=== PATIENT | female | born 1965 ===

== ENCOUNTER 2016-06-09 15:33 | Emergency (ER) | payer MEDICAID ==
[2016-06-09 15:34] VITALS: BMI 27.9
[2016-06-09 16:44] VITALS: RESP 18; TEMP 98.2
[2016-06-09 17:08] VITALS: PULSE 62
[2016-06-09] MEDS ORDERED: Oxycodone/Acetaminophen 5/325 mg Tab PO STA (17:14)
--- NOTE | 2016-06-09 17:17 | ED PDOC ---
Arrival/HPI - General Chief Complaint: Back Pain Time Seen by Provider: 06/09/16 16:12 Historian: Patient - History of Present Illness Narrative History of Present Illness (Text): 06/09/16 17:14 Patient with h/o chronic intermittent low back pain, reports 7 day h/o pain in the R lower back worse with movement and palpation, beginning after she slipped and fell onto her knees 7 days ago, while walking in the rain, states that she does follow up with pain management, was on hydrocodone 10 mg, however ran out 1 week ago and unable to follow up with her pain management doctor, due to lack of available appointment. Otherwise: (-) paresthesias, (-) weakness, (-) acute bowel or bladder dysfunction, (-) urinary symptoms, (-) fever. Has history of prior back problem. Past Medical History - Provider Review Nursing Documentation Reviewed: Yes - Infectious Disease Hx of Infectious Diseases: None - Tetanus Immunization Tetanus Immunization: Unknown - Past Medical History Past Medical History: Non-Contributing - Cardiac Hx Cardiac Disorders: No - Pulmonary Hx Respiratory Disorders: Yes Hx Asthma: Yes Hx Bronchitis: Yes - Neurological Hx Neurological Disorder: No - HEENT Hx HEENT Disorder: No - Renal Hx Renal Disorder: No - Endocrine/Metabolic Hx Endocrine Disorders: No Hx Diabetes Mellitus Type 2: Yes - Hematological/Oncological Hx Blood Disorders: Yes Hx Anemia: Yes - Integumentary Hx Dermatological Disorder: No - Musculoskeletal/Rheumatological Hx Musculoskeletal Disorders: Yes Hx Back Pain: Yes (chronic) Hx Osteoarthritis: Yes - Gastrointestinal Hx Gastrointestinal Disorders: Yes Hx Gastroesophageal Reflux: Yes - Genitourinary/Gynecological Hx Genitourinary Disorders: Yes Other/Comment: kidney stones - Psychiatric Hx Psychophysiologic Disorder: No Hx Substance Use: No - Surgical History Hx Hysterectomy: Yes (2011) Hx Orthopedic Surgery: Yes (foot left) Other/Comment: kidney stones removed, cyst removal - Anesthesia Hx Anesthesia: No Hx Anesthesia Reactions: No Hx Malignant Hyperthermia: No - Suicidal Assessment Feels Threatened In Home Enviroment: No Family/Social History - Physician Review Nursing Documentation Reviewed: Yes Family/Social History: No Known Family HX Smoking Status: Heavy Smoker > 10 Cigarettes Daily Hx Alcohol Use: No Hx Substance Use: No Hx Substance Use Treatment: No Allergies/Home Meds Allergies/Adverse Reactions: Allergies No Known Allergies Allergy (Verified 06/09/16 16:38) Home Medications: Home Meds Medication Instructions Recorded Confirmed Albuterol HFA [Ventolin HFA 90 2 puff IH QID 06/03/13 06/06/15 mcg/actuation (8 g)] Hydroxyzine Pamoate 50 mg PO BID 06/03/13 06/06/15 Montelukast [Singulair] 10 mg PO DAILY 06/03/13 06/06/15 Omeprazole 20 mg PO DAILY 06/03/13 06/06/15 Neomycin/Polymyxin/Hydrocort 2 drop .ROUTE TID 02/14/15 06/06/15 [Cortisporin Otic Soln] Zolpidem Tartrate [Ambien] 10 mg PO HS PRN 02/14/15 06/06/15 oxyCODONE/Acetaminophen [Percocet 1 tab PO HS PRN 02/14/15 06/06/15 5/325 mg Tab] Review of Systems - Review of Systems Constitutional: Normal. absent: Fatigue, Weight Change, Fevers Respiratory: Normal. absent: SOB, Cough Cardiovascular: Normal. absent: Chest Pain, Palpitations Gastrointestinal: Normal. absent: Abdominal Pain, Stool Changes Genitourinary Female: Normal. absent: Dysuria, Frequency Musculoskeletal: Normal, Back Pain (chronic low back pain). absent: Arthralgias Skin: Normal. absent: Rash, Pruritis Physical Exam - Physical Exam Narrative Physical Exam (Text): 06/09/16 17:17 GENERAL APPEARANCE: Patient is awake, alert, oriented x 3, in mild painful distress. SKIN: Warm, dry; (-) cyanosis. EYES: (-) conjunctival pallor. ENMT: Mucous membranes moist. NECK: (-) tenderness, (-) stiffness, (-) lymphadenopathy. CHEST AND RESPIRATORY: (-) rales, (-) rhonchi, (-) wheezes; breath sounds equal bilaterally. HEART AND CARDIOVASCULAR: (-) irregularity; (-) murmur, (-) gallop. ABDOMEN AND GI: Soft; (-) tenderness; (-) palpable mass. BACK: (+) mild tenderness to the R paralumbar area, (+) mild spasm, (-) direct bony tenderness, (-) deformity. Straight leg raising (-) bilaterally. EXTREMITIES: (-) deformity. Distal pulses good bilaterally. NEURO AND PSYCH: Mental status as above. Intact sensation bilaterally; normal strength in extension of the knees, plantar and dorsiflexion of the toes. DTRs symmetric. Vital Signs Temp Pulse Resp BP Pulse Ox 06/09/16 17:06 98.2 F 62 18 147/74 100 06/09/16 16:44 98.2 F 86 18 126/73 100 Medical Decision Making ED Course and Treatment: 06/09/16 17:18 50 yo MF presents with 1 week h/o R low back pain, likely lumbar strain from slip and fall. Patient medicated with toradol IM, flexeril PO and percocet PO. Given a refill of her hydrocodone-acetaminophen 7.5-325 mg PO. Based on history and exam, plan will be for outpatient follow-up with pain management doctor. Prescription provided. Patient states she fully agrees with and understands discharge instructions. States that she agrees with the plan and disposition. Verbalized and repeated discharge instructions and plan. I have given the patient opportunity to ask any additional questions. Follow up with pain management in 1-2 days without fail. Advised to take medication as prescribed. Return to the emergency room at any time for any new or worsening symptoms. - PA / DENIAL RESOLUTION SPECIALIST / Resident Statement MD/DO has reviewed & agrees with the documentation as recorded. Disposition/Present on Arrival - Present on Arrival Any Indicators Present on Arrival: No History of DVT/PE: No History of Uncontrolled Diabetes: No Urinary Catheter: No History of Decub. Ulcer: No History Surgical Site Infection Following: None - Disposition Have Diagnosis and Disposition been Completed?: Yes Diagnosis: Back pain Disposition: HOME/ ROUTINE Disposition Time: 17:20 Patient Plan: Discharge Condition: GOOD Discharge Instructions (ExitCare): Acute Low Back Pain (ED) Print Language: AMHARIC Additional Instructions: Thank you for letting us take care of you today. You were treated for low back pain. The emergency medical care you received today was directed at your acute symptoms. If you were prescribed any medication, please fill it and take as directed. It may take several days for your symptoms to resolve. Return to the Emergency Department if your symptoms worsen, do not improve, or if you have any other problems. Please contact your pain management doctor in 2 days for re-evaluation and follow up. Bring any paperwork you were given at discharge with you along with any medications you are taking to your follow up visit. Our treatment cannot replace ongoing medical care by a primary care provider (PCP) outside of the emergency department. Thank you for allowing the [facility] team to be part of your care today. Prescriptions: Cyclobenzaprine [Cyclobenzaprine HCl] 10 mg PO TID #15 tab Naproxen 500 mg PO BID #30 tab Hydrocodone/Acetaminophen [Vicodin Es 7.5-300 mg Tablet] 1 each PO TID #16 tablet Forms: WORK NOTE
[2016-06-09 18:01] VITALS: BP 139/87; O2SAT 95
== END 2016-06-09 17:59 | disposition home or self-care (01) ==
LOC: ED 15:33
DX: M54.9 Dorsalgia, unspecified (principal); E11.9 Type 2 diabetes mellitus without complications
CPT/HCPCS: 96372; 99283; J1885

== ENCOUNTER 2016-06-24 19:16 | Emergency (ER) | payer MEDICAID ==
[2016-06-24 19:19] VITALS: BMI 28.3
[2016-06-24] MEDS ORDERED: Promethazine 6.25 MG/5 ML CUP PO STA (19:33)
[2016-06-24] MEDS ORDERED: Albuterol-Ipratrop 3 mg / 0.5 (3 ml) UD IH STA (19:33)
[2016-06-24] MEDS ORDERED: Oxycodone/Acetaminophen 5/325 mg Tab PO STA (19:33)
[2016-06-24 19:39] VITALS: RESP 16; TEMP 97.7; O2SAT 97
--- NOTE | 2016-06-24 19:39 | ED PDOC ---
Arrival/HPI - General Time Seen by Provider: 06/24/16 19:17 - History of Present Illness Narrative History of Present Illness (Text): 50F c/o cough and sob for the last 4 days. she feels chest congestion but cough is not productive. no fever. also c/o flare up of her chronic back pain from coughing. she saw her doctor a couple days ago and was rx zpack, prednisone and tessalon but feels she has not improved. Past Medical History - Infectious Disease Hx of Infectious Diseases: None - Tetanus Immunization Tetanus Immunization: Unknown - Past Medical History Past Medical History: Non-Contributing - Cardiac Hx Cardiac Disorders: No - Pulmonary Hx Respiratory Disorders: Yes Hx Asthma: Yes Hx Bronchitis: Yes - Neurological Hx Neurological Disorder: No - HEENT Hx HEENT Disorder: No - Renal Hx Renal Disorder: No - Endocrine/Metabolic Hx Endocrine Disorders: No Hx Diabetes Mellitus Type 2: Yes - Hematological/Oncological Hx Blood Disorders: Yes Hx Anemia: Yes - Integumentary Hx Dermatological Disorder: No - Musculoskeletal/Rheumatological Hx Musculoskeletal Disorders: Yes Hx Back Pain: Yes (chronic) Hx Osteoarthritis: Yes - Gastrointestinal Hx Gastrointestinal Disorders: Yes Hx Gastroesophageal Reflux: Yes - Genitourinary/Gynecological Hx Genitourinary Disorders: Yes Other/Comment: kidney stones - Psychiatric Hx Psychophysiologic Disorder: No Hx Substance Use: No - Surgical History Hx Hysterectomy: Yes (2011) Hx Orthopedic Surgery: Yes (foot left) Other/Comment: kidney stones removed, cyst removal - Anesthesia Hx Anesthesia: No Hx Anesthesia Reactions: No Hx Malignant Hyperthermia: No - Suicidal Assessment Feels Threatened In Home Enviroment: No Family/Social History Family/Social History: Other (nc) Smoking Status: Heavy Smoker > 10 Cigarettes Daily Hx Alcohol Use: No Hx Substance Use: No Hx Substance Use Treatment: No Allergies/Home Meds Allergies/Adverse Reactions: Allergies naproxen Allergy (Verified 06/24/16 19:30) RASH Home Medications: Home Meds Medication Instructions Recorded Confirmed Albuterol HFA [Ventolin HFA 90 2 puff IH QID 06/03/13 06/24/16 mcg/actuation (8 g)] Hydroxyzine Pamoate 50 mg PO BID 06/03/13 06/24/16 Montelukast [Singulair] 10 mg PO DAILY 06/03/13 06/24/16 Omeprazole 20 mg PO DAILY 06/03/13 06/24/16 Zolpidem Tartrate [Ambien] 10 mg PO HS PRN 02/14/15 06/24/16 Albuterol HFA [Ventolin HFA 90 1 puff INH PRN PRN 06/24/16 06/24/16 mcg/actuation (8 g)] Atorvastatin [Lipitor] 10 mg PO DAILY 06/24/16 06/24/16 Azithromycin [Zithromax] 250 mg PO DAILY 06/24/16 06/24/16 Prednisone [Deltasone] 20 mg PO DAILY 06/24/16 06/24/16 oxyCODONE [oxyCONTIN Extended 10 mg PO Q4H PRN 06/24/16 06/24/16 Release Tab] oxyCODONE/Acetaminophen [Percocet 1 tab PO Q6 PRN 06/24/16 06/24/16 5/325 mg Tab] Review of Systems - Review of Systems Constitutional: absent: Fevers, Night Sweats Eyes: absent: Vision Changes Respiratory: SOB, Cough. absent: Sputum, Wheezing Cardiovascular: absent: Chest Pain Gastrointestinal: absent: Abdominal Pain, Vomiting Genitourinary Female: absent: Dysuria Musculoskeletal: Back Pain Physical Exam Vital Signs Temp Pulse Resp BP Pulse Ox 06/24/16 20:42 99 H 16 138/89 97 06/24/16 19:20 97.7 F 83 16 141/92 H 97 Appearance: Positive for: Well-Appearing, Non-Toxic, Comfortable Pain Distress: None Mental Status: Positive for: Alert and Oriented X 3 - Systems Exam Head: Present: Atraumatic Mouth: Present: Moist Mucous Membranes Neck: Present: Normal Range of Motion Respiratory/Chest: Present: Clear to Auscultation, Good Air Exchange. No: Respiratory Distress, Accessory Muscle Use, Wheezes Cardiovascular: Present: Regular Rate and Rhythm Abdomen: No: Tenderness, Distention Neurological: Present: GCS=15, Motor Func Grossly Intact, Normal Sensory Function Skin: Present: Warm, Dry Psychiatric: Present: Alert, Oriented x 3 Medical Decision Making ED Course and Treatment: ecg- nsr 80, nl axis, nl int, no acute ischemia 06/24/16 20:04 cxr- several subcentimenter round densities in the right lung, otherwise nad I disc cxr w pt and importance of close f/u w pcp for an outpt chest CT to rule out malignancy - RAD Interpretation Radiology Orders: 06/24/16 19:33 CHEST TWO VIEWS (PA/LAT) [RAD] Stat - Medication Orders Current Medication Orders: Discontinued Medications Albuterol/Ipratropium (Duoneb 3 Mg/0.5 Mg (3 Ml) Ud) 3 ml IH ONCE STA Stop: 06/24/16 19:34 Last Admin: 06/24/16 19:50 Dose: 3 ML Oxycodone/Acetaminophen (Percocet 5/325 Mg Tab) 1 tab PO STAT STA Stop: 06/24/16 19:34 Last Admin: 06/24/16 19:50 Dose: 1 TAB Promethazine HCl (Phenergan Syrup) 6.25 mg PO STAT STA Stop: 06/24/16 19:34 Last Admin: 06/24/16 19:50 Dose: 6.25 MG Disposition/Present on Arrival - Present on Arrival Any Indicators Present on Arrival: No History of DVT/PE: No History of Uncontrolled Diabetes: No Urinary Catheter: No History Surgical Site Infection Following: None - Disposition Have Diagnosis and Disposition been Completed?: Yes Diagnosis: Bronchitis Disposition: HOME/ ROUTINE Disposition Time: 20:03 Condition: STABLE Discharge Instructions (ExitCare): Acute Bronchitis (ED) Additional Instructions: Please follow up with your doctor. Return to the ER for any worsening symptoms or for any other concerns. Prescriptions: Promethazine [Promethazine HCl] 6.25 mg PO Q6H PRN #12 dose PRN Reason: Cough Acetaminophen with Codeine [Tylenol with Codeine #3 Tablet] 1 each PO Q4H PRN # 6 tablet PRN Reason: Pain, Moderate (4-7) Referrals: Tamia Tan MD [Primary Care Provider] - Follow up with primary
[2016-06-24 20:42] VITALS: BP 138/89; PULSE 99
--- NOTE | 2016-06-25 07:30 | RAD ---
HISTORY: cough COMPARISON: 02/20/2016. TECHNIQUE: Chest PA and lateral FINDINGS: LUNGS: No active pulmonary disease. PLEURA: No significant pleural effusion identified. No pneumothorax apparent. CARDIOVASCULAR: Normal. OSSEOUS STRUCTURES: No significant abnormalities. VISUALIZED UPPER ABDOMEN: Metallic clips right upper quadrant of the abdomen consistent with prior cholecystectomy. OTHER FINDINGS: None. IMPRESSION: No active disease.
--- NOTE | 2016-06-25 10:15 | CARD ---
APPROVED REPORT EKG Measurement Heart [id number] <Conclusion> Normal sinus rhythm Possible Left atrial enlargement Borderline ECG
== END 2016-06-24 20:43 | disposition home or self-care (01) ==
LOC: ED 19:16
DX: J40 Bronchitis, not specified as acute or chronic (principal)

== ENCOUNTER 2016-08-05 13:25 | Emergency (ER) | payer MEDICAID ==
[2016-08-05 13:25] VITALS: BMI 28.3
[2016-08-05 13:31] VITALS: PULSE 85; TEMP 98
[2016-08-05] MEDS ORDERED: Oxycodone/Acetaminophen 5/325 mg Tab PO STA (13:36)
--- NOTE | 2016-08-05 13:40 | ED PDOC ---
Arrival/HPI - General Chief Complaint: Back Pain Time Seen by Provider: 08/05/16 13:36 - History of Present Illness Narrative History of Present Illness (Text): 08/05/16 13:36 Patient presents complaining of back pain. States the location is in the lower region, across her back, feels like muscle spasms. Worst with movement and palpation. Pt states this feels identical to previous back pain quality that have happened in the past. States that she helped push someone in a wheelchair yesterday which made her pain worse. States that she not feel or hear a pop. Denies fevers/chills, denies IVDA, denies any lower extremity weakness/numbness/ paresthesias. Pt denies saddle anesthesia. Denies any urinary freq or retention. Denies bowel dysfunction/irregularity/incontinence/constipation. Past Medical History - Provider Review Nursing Documentation Reviewed: Yes - Infectious Disease Hx of Infectious Diseases: None - Tetanus Immunization Tetanus Immunization: Unknown - Past Medical History Past Medical History: Non-Contributing - Cardiac Hx Cardiac Disorders: No - Pulmonary Hx Respiratory Disorders: Yes Hx Asthma: Yes Hx Bronchitis: Yes - Neurological Hx Neurological Disorder: No - HEENT Hx HEENT Disorder: No - Renal Hx Renal Disorder: No - Endocrine/Metabolic Hx Endocrine Disorders: No Hx Diabetes Mellitus Type 2: Yes - Hematological/Oncological Hx Blood Disorders: Yes Hx Anemia: Yes - Integumentary Hx Dermatological Disorder: No - Musculoskeletal/Rheumatological Hx Musculoskeletal Disorders: Yes Hx Back Pain: Yes (chronic) Hx Osteoarthritis: Yes - Gastrointestinal Hx Gastrointestinal Disorders: Yes Hx Gastroesophageal Reflux: Yes - Genitourinary/Gynecological Hx Genitourinary Disorders: Yes Other/Comment: kidney stones - Psychiatric Hx Psychophysiologic Disorder: No Hx Substance Use: No - Surgical History Hx Hysterectomy: Yes (2011) Hx Orthopedic Surgery: Yes (foot left) Other/Comment: kidney stones removed, cyst removal - Anesthesia Hx Anesthesia: Yes Hx Anesthesia Reactions: No Hx Malignant Hyperthermia: No - Suicidal Assessment Feels Threatened In Home Enviroment: No Family/Social History Family/Social History: Unknown Family HX Smoking Status: Heavy Smoker > 10 Cigarettes Daily Hx Alcohol Use: No Hx Substance Use: No Hx Substance Use Treatment: No Allergies/Home Meds Allergies/Adverse Reactions: Allergies naproxen Allergy (Verified 08/05/16 13:31) RASH Home Medications: Home Meds Medication Instructions Recorded Confirmed Albuterol HFA [Ventolin HFA 90 2 puff IH QID 06/03/13 08/05/16 mcg/actuation (8 g)] Hydroxyzine Pamoate 50 mg PO BID 06/03/13 08/05/16 Montelukast [Singulair] 10 mg PO DAILY 06/03/13 08/05/16 Omeprazole 20 mg PO DAILY 06/03/13 08/05/16 Zolpidem Tartrate [Ambien] 10 mg PO HS PRN 02/14/15 08/05/16 Albuterol HFA [Ventolin HFA 90 1 puff INH PRN PRN 06/24/16 08/05/16 mcg/actuation (8 g)] Atorvastatin [Lipitor] 10 mg PO DAILY 06/24/16 08/05/16 oxyCODONE [oxyCONTIN Extended 10 mg PO Q4H PRN 06/24/16 08/05/16 Release Tab] Physical Exam - Physical Exam Narrative Physical Exam (Text): 08/05/16 13:37 - Review of Systems Constitutional: Normal. absent: Fatigue, Weight Change, Fevers Eyes: Normal ENT: denies sore throat, denies tristhmus Respiratory: Normal. absent: SOB, Cough, Sputum Cardiovascular: absent: Chest Pain, Palpitations, Syncope Gastrointestinal: Normal. absent: Abdominal Pain, Diarrhea, Nausea, Vomiting Genitourinary: Normal. absent: Dysuria, Frequency, Hematuria, vaginal bleeding Musculoskeletal: Back Pain. absent: Arthralgias, Neck Pain Skin: no rashes, no erythema Neurological: absent: Focal Weakness Endocrine: Normal Hemo/Lymphatic: Normal Psychiatric: No suicidal or homicidal ideations Physical exam Patient appears age appropriate in no distress, speaking full sentences without difficulty Increased hypertonicity appreciated in the lower lumbar region, pain quality reproduced with palpation. No midline tenderness. FROM of pt's cervical, thoracic, lumbar, and sacral regions appreciated, active/passive without any difficulty. Lower extremities with full neurological and vascular intact. Steady gait. - Systems Exam Head: Present: Atraumatic, Normocephalic Pupils: Present: PERRL Extroacular Muscles: Present: EOMI Conjunctiva: Present: Normal Mouth: Present: Moist Mucous Membranes Neck: Present: Normal Range of Motion. No: MIDLINE TENDERNESS, Paraspinal Tenderness Respiratory/Chest: Present: Clear to Auscultation, Good Air Exchange. No: Respiratory Distress, Accessory Muscle Use, Tachypneic Cardiovascular: Present: Regular Rate and Rhythm, Normal S1, S2, Peripheal Pulses Present. No: Murmurs Abdomen: Present: Normal Bowel Sounds. No: Tenderness, Distention, Peritoneal Signs, Rebound, Guarding Back: Present: No: Midline Tenderness Upper Extremity: Present: Normal Inspection. No: Cyanosis, Edema Lower Extremity: Present: Normal Inspection. No: Edema Neurological: Present: GCS=15, Speech Normal, cranial nerves II through XII fully intact with no cerebellar abnormality, neurosensory fully intact. No focal neurological deficits. Skin: Present: Warm, Dry, Normal Color. No: Rashes Lymphatic: Present: OX3, NI, NC Psychiatric: Present: Alert, Oriented x 3, Normal Insight, Normal Concentration Vital Signs Reviewed: Yes Vital Signs Temp Pulse Resp BP Pulse Ox 08/05/16 13:26 98 F 85 20 116/84 99 Temperature: Afebrile Blood Pressure: Normal Pulse: Regular Respiratory Rate: Normal Appearance: Positive for: Well-Appearing Pain Distress: Mild Mental Status: Positive for: Alert and Oriented X 3 Medical Decision Making ED Course and Treatment: 08/05/16 13:39 pt received Percocet for her request. Pt states is not driving home. Based on hx and physical, no suspicion for renal involvement, cord impingement or epidural/spinal abscess stable for dc home. instructed not to drive/operate machinery/drink/do drugs with medication pt states she has f/u with PMD this upcoming week Pt verbalized understands to return to the ER right away for new or worsening symptoms or for inability to f/u with PMD or specialist as instructed. Patient verbalized full agreement with and understanding of discharge instructions. States that she agrees with the plan and disposition. Verbalized and repeated discharge instructions and plan. I have given the patient opportunity to ask any additional questions. Disposition/Present on Arrival - Present on Arrival Any Indicators Present on Arrival: No History of DVT/PE: No History of Uncontrolled Diabetes: No Urinary Catheter: No History of Decub. Ulcer: No History Surgical Site Infection Following: None - Disposition Have Diagnosis and Disposition been Completed?: Yes Diagnosis: Back pain Disposition: HOME/ ROUTINE Disposition Time: 13:40 Patient Plan: Discharge Condition: GOOD Discharge Instructions (ExitCare): Back Pain (ED), Chronic Back Pain (ED), Acute Low Back Pain (ED) Additional Instructions: PLEASE RETURN TO THE EMERGENCY DEPARTMENT FOR NEW OR WORSENING SYMPTOMS. RETURN RIGHT AWAY IF YOU CANNOT FOLLOW UP WITH YOUR PRIMARY CARE DOCTOR, CLINIC, OR SPECIALIST IN 1-2 DAYS. Prescriptions: Cyclobenzaprine [Flexeril] 5 mg PO BID #10 tab Referrals: Carina Amaya MD [Staff Provider] - Follow up with primary
[2016-08-05 14:00] VITALS: BP 114/76; RESP 19; O2SAT 100
== END 2016-08-05 14:01 | disposition home or self-care (01) ==
LOC: ED 13:25
DX: M54.9 Dorsalgia, unspecified (principal)

== ENCOUNTER 2016-08-06 17:40 | Emergency (ER) | payer MEDICAID ==
[2016-08-06 17:40] VITALS: BMI 28.3
[2016-08-06 18:29] VITALS: BP 120/84; PULSE 90; RESP 16; TEMP 98.4; O2SAT 97
[2016-08-06] MEDS ORDERED: Oxycodone/Acetaminophen 5/325 mg Tab PO STA (19:01)
--- NOTE | 2016-08-06 19:04 | ED PDOC ---
Arrival/HPI - General Chief Complaint: Back Pain Time Seen by Provider: 08/06/16 19:01 Historian: Patient - History of Present Illness Narrative History of Present Illness (Text): 08/06/16 19:05 50 year old female presents to the emergency department complaining of lower back pain. She states the pain is in the lower region, across her back, and feels like muscle spasms. Pain is worse with movement and palpation. Patient states this feels identical to previous back pain quality that has happened in the past. She states that she helped push someone in a wheelchair two days ago which made her pain worse. She states she did not feel or hear a pop. Denies fevers/chills, denies IVDA, denies any lower extremity weakness/numbness/ paresthesias. Patient denies saddle anesthesia. Denies any urinary frequency or retention. Denies bowel dysfunction/irregularity/incontinence/constipation. Time/Duration: < week Symptom Onset: Gradual Symptom Course: Unchanged Associated Symptoms (Text): None Past Medical History - Provider Review Nursing Documentation Reviewed: Yes - Infectious Disease Hx of Infectious Diseases: None - Tetanus Immunization Tetanus Immunization: Unknown - Past Medical History Past Medical History: Non-Contributing - Cardiac Hx Cardiac Disorders: No - Pulmonary Hx Respiratory Disorders: Yes Hx Asthma: Yes Hx Bronchitis: Yes - Neurological Hx Neurological Disorder: No - HEENT Hx HEENT Disorder: No - Renal Hx Renal Disorder: No - Endocrine/Metabolic Hx Endocrine Disorders: No Hx Diabetes Mellitus Type 2: Yes - Hematological/Oncological Hx Blood Disorders: Yes Hx Anemia: Yes - Integumentary Hx Dermatological Disorder: No - Musculoskeletal/Rheumatological Hx Musculoskeletal Disorders: Yes Hx Back Pain: Yes (chronic) Hx Osteoarthritis: Yes - Gastrointestinal Hx Gastrointestinal Disorders: Yes Hx Gastroesophageal Reflux: Yes - Genitourinary/Gynecological Hx Genitourinary Disorders: Yes Other/Comment: kidney stones - Psychiatric Hx Psychophysiologic Disorder: No Hx Substance Use: No - Surgical History Hx Hysterectomy: Yes (2011) Hx Orthopedic Surgery: Yes (foot left) Other/Comment: kidney stones removed, cyst removal - Anesthesia Hx Anesthesia: No - Suicidal Assessment Feels Threatened In Home Enviroment: No Family/Social History - Physician Review Nursing Documentation Reviewed: Yes Family/Social History: Unknown Family HX Smoking Status: Heavy Smoker > 10 Cigarettes Daily Hx Alcohol Use: No Hx Substance Use: No Hx Substance Use Treatment: No Allergies/Home Meds Allergies/Adverse Reactions: Allergies naproxen Allergy (Verified 08/06/16 18:24) RASH Review of Systems - Physician Review All systems were reviewed & negative as marked: Yes Physical Exam - Physical Exam Narrative Physical Exam (Text): - Review of Systems Constitutional: Normal. absent: Fatigue, Weight Change, Fevers Eyes: Normal ENT: denies sore throat, denies tristhmus Respiratory: Normal. absent: SOB, Cough, Sputum Cardiovascular: absent: Chest Pain, Palpitations, Syncope Gastrointestinal: Normal. absent: Abdominal Pain, Diarrhea, Nausea, Vomiting Genitourinary: Normal. absent: Dysuria, Frequency, Hematuria, vaginal bleeding Musculoskeletal: Back Pain. absent: Arthralgias, Neck Pain Skin: No rashes, no erythema Neurological: absent: Focal Weakness Endocrine: Normal Hemo/Lymphatic: Normal Psychiatric: No suicidal or homicidal ideations Physical exam Patient appears age appropriate in no distress, speaking full sentences without difficulty Increased hypertonicity appreciated in the lower lumbar region, pain quality reproduced with palpation. No midline tenderness. FROM of pt's cervical, thoracic, lumbar, and sacral regions appreciated, active/passive without any difficulty. Lower extremities with full neurological and vascular intact. Steady gait. - Systems Exam Head: Present: Atraumatic, Normocephalic Pupils: Present: PERRL Extroacular Muscles: Present: EOMI Conjunctiva: Present: Normal Mouth: Present: Moist Mucous Membranes Neck: Present: Normal Range of Motion. No: MIDLINE TENDERNESS, Paraspinal Tenderness Respiratory/Chest: Present: Clear to Auscultation, Good Air Exchange. No: Respiratory Distress, Accessory Muscle Use, Tachypneic Cardiovascular: Present: Regular Rate and Rhythm, Normal S1, S2, Peripheal Pulses Present. No: Murmurs Abdomen: Present: Normal Bowel Sounds. No: Tenderness, Distention, Peritoneal Signs, Rebound, Guarding Back: Present: No: Midline Tenderness Upper Extremity: Present: Normal Inspection. No: Cyanosis, Edema Lower Extremity: Present: Normal Inspection. No: Edema Neurological: Present: GCS=15, Speech Normal, cranial nerves II through XII fully intact with no cerebellar abnormality, neurosensory fully intact. No focal neurological deficits. Skin: Present: Warm, Dry, Normal Color. No: Rashes Lymphatic: Present: OX3, NI, NC Psychiatric: Present: Alert, Oriented x 3, Normal Insight, Normal Concentration Vital Signs Reviewed: Yes Vital Signs Temp Pulse Resp BP Pulse Ox 08/06/16 18:25 98.4 F 90 16 120/84 97 Temperature: Afebrile Blood Pressure: Normal Pulse: Regular Respiratory Rate: Normal Appearance: Positive for: Well-Appearing, Non-Toxic, Comfortable Pain Distress: None Mental Status: Positive for: Alert and Oriented X 3 Medical Decision Making ED Course and Treatment: Impression: 50 year old female presents to the emergency department complaining of lower back pain. On physical exam, patient has no acute findings. Differential Diagnosis include but are not limited to: Back pain Plan: -- Percocet -- Reassess and disposition Prior Visits: Notes and results from previous visits were reviewed. Patient last seen in the ED on 08/05/16 for same complaint and discharged home. Progress Notes: 08/06/16 19:24 Patient received Percocet for her pain. Patient is asking for Percocet or oxycodone prescription. Had a long discussion with patient about dangers of opiate dependence. I recommended that she follow up with her primary physician for pain management physician outpatient. Pt states is not driving home. Based on hx and physical, no suspicion for renal involvement, cord impingement or epidural/spinal abscess instructed not to drive/operate machinery/drink/do drugs with medication Pt verbalized understands to return to the ER right away for new or worsening symptoms or for inability to f/u with PMD or specialist as instructed. Patient verbalized full agreement with and understanding of discharge instructions. States that he agrees with the plan and disposition. Verbalized and repeated discharge instructions and plan. I have given the patient opportunity to ask any additional questions. - Medication Orders Current Medication Orders: Discontinued Medications Oxycodone/Acetaminophen (Percocet 5/325 Mg Tab) 1 tab PO STAT STA Stop: 08/06/16 19:02 Last Admin: 08/06/16 19:20 Dose: 1 tab - Scribe Statement The provider has reviewed the documentation as recorded by the Aissatou Saunders Provider Scribe Attestation: All medical record entries made by the Scribe were at my direction and personally dictated by me. I have reviewed the chart and agree that the record accurately reflects my personal performance of the history, physical exam, medical decision making, and the department course for this patient. I have also personally directed, reviewed, and agree with the discharge instructions and disposition. Disposition/Present on Arrival - Present on Arrival Any Indicators Present on Arrival: No History of DVT/PE: No History of Uncontrolled Diabetes: Yes Urinary Catheter: No History of Decub. Ulcer: No History Surgical Site Infection Following: None - Disposition Have Diagnosis and Disposition been Completed?: Yes Diagnosis: Back pain Disposition: HOME/ ROUTINE Disposition Time: 19:27 Patient Plan: Discharge Condition: GOOD Discharge Instructions (ExitCare): Back Pain (ED) Additional Instructions: PLEASE RETURN TO THE EMERGENCY DEPARTMENT FOR NEW OR WORSENING SYMPTOMS. RETURN RIGHT AWAY IF YOU CANNOT FOLLOW UP WITH YOUR PRIMARY CARE DOCTOR, CLINIC, OR SPECIALIST IN 1-2 DAYS. Referrals: Gabrielle Rojas MD [Staff Provider] - Follow up with primary
== END 2016-08-06 20:30 | disposition home or self-care (01) ==
LOC: ED 17:40
DX: M54.5 Low back pain (principal)

== ENCOUNTER 2016-10-26 09:47 | Emergency (ER) | payer MEDICAID ==
[2016-10-26 10:16] VITALS: RESP 18; TEMP 98; BMI 28.7
[2016-10-26] MEDS ORDERED: Morphine 4 mg/ml ISec IM STA (10:21)
--- NOTE | 2016-10-26 10:27 | ED PDOC ---
Arrival/HPI - General Chief Complaint: Back Pain Time Seen by Provider: 10/26/16 10:20 Historian: Patient - History of Present Illness Narrative History of Present Illness (Text): 10/26/16 10:24 50 y/o female, pmh including chronic back pain, allergic to nsaids, oost menopausal, c/o lower back and lt. hip pain x 3 weeks with no fall or trauma. Aching pain, non-radiating, 2 different pain as per patient, no urinary symptoms , no urinary or bowel incontinence or retention, no night sweat, no chest pain or shortness of breath, no weight loss, no other medical or psychological complaints. Past Medical History - Provider Review Nursing Documentation Reviewed: Yes - Infectious Disease Hx of Infectious Diseases: None - Tetanus Immunization Tetanus Immunization: Unknown - Past Medical History Past Medical History: Non-Contributing - Cardiac Hx Cardiac Disorders: Yes - Pulmonary Hx Respiratory Disorders: Yes Hx Asthma: Yes Hx Bronchitis: Yes - Neurological Hx Neurological Disorder: No - HEENT Hx HEENT Disorder: No - Renal Hx Renal Disorder: No - Endocrine/Metabolic Hx Endocrine Disorders: Yes Hx Diabetes Mellitus Type 2: Yes - Hematological/Oncological Hx Blood Disorders: Yes Hx Anemia: Yes - Integumentary Hx Dermatological Disorder: No - Musculoskeletal/Rheumatological Hx Musculoskeletal Disorders: Yes Hx Arthritis: Yes Hx Back Pain: Yes (chronic) Hx Osteoarthritis: Yes - Gastrointestinal Hx Gastrointestinal Disorders: Yes Hx Gastroesophageal Reflux: Yes - Genitourinary/Gynecological Hx Genitourinary Disorders: Yes Other/Comment: kidney stones - Psychiatric Hx Psychophysiologic Disorder: Yes Hx Depression: Yes Hx Substance Use: No - Surgical History Hx Hysterectomy: Yes (2011) Hx Orthopedic Surgery: Yes (foot left) Other/Comment: kidney stones removed, cyst removal - Anesthesia Hx Anesthesia: No - Suicidal Assessment Feels Threatened In Home Enviroment: No Family/Social History - Physician Review Nursing Documentation Reviewed: Yes Family/Social History: Unknown Family HX Smoking Status: Former Smoker Hx Alcohol Use: No Hx Substance Use: No Hx Substance Use Treatment: No Allergies/Home Meds Allergies/Adverse Reactions: Allergies ibuprofen Allergy (Verified 10/26/16 10:20) RASH naproxen Allergy (Verified 10/26/16 10:20) RASH Home Medications: Home Meds Medication Instructions Recorded Confirmed Albuterol 0.083% [Albuterol 3 ml IH BID 10/26/16 10/26/16 Sulfate 3 Ml] Albuterol HFA [Ventolin HFA 90 2 puff IH [id number] 10/26/16 10/26/16 mcg/actuation (8 g)] Atorvastatin [Lipitor] 40 mg PO DAILY 10/26/16 10/26/16 Cholecalciferol [Vitamin D] 1,000 unit PO DAILY 10/26/16 10/26/16 Hydrocodone/Acetaminophen 1 each PO Q4 PRN 10/26/16 10/26/16 [Hydrocodon-Acetaminophn 10-325] Omeprazole 20 mg PO DAILY 10/26/16 10/26/16 Zolpidem [Ambien] 10 mg PO BID 10/26/16 10/26/16 buPROPion [Bupropion HCl] 75 mg PO BID 10/26/16 10/26/16 hydrOXYzine HCl [Atarax] 50 mg PO DAILY 10/26/16 10/26/16 metFORMIN [glucOPHAGE] 500 mg PO BID 10/26/16 10/26/16 Review of Systems - Review of Systems Constitutional: absent: Fatigue, Fevers Eyes: absent: Vision Changes ENT: absent: Hearing Changes Respiratory: absent: SOB, Cough Cardiovascular: absent: Chest Pain Gastrointestinal: absent: Abdominal Pain, Diarrhea, Nausea, Vomiting Musculoskeletal: Arthralgias, Back Pain. absent: Neck Pain, Joint Swelling, Myalgias Skin: absent: Rash, Pruritis, Skin Lesions Physical Exam Vital Signs Reviewed: Yes Vital Signs Temp Pulse Resp BP Pulse Ox 10/26/16 12:20 69 18 124/65 97 10/26/16 11:23 71 18 126/69 97 10/26/16 10:11 98 F 88 18 128/73 99 Temperature: Afebrile Blood Pressure: Normal Pulse: Regular Respiratory Rate: Normal Appearance: Positive for: Well-Appearing, Non-Toxic Pain Distress: Severe Mental Status: Positive for: Alert and Oriented X 3 - Systems Exam Head: Present: Atraumatic, Normocephalic Pupils: Present: PERRL Extroacular Muscles: Present: EOMI Conjunctiva: Present: Normal Mouth: Present: Moist Mucous Membranes Neck: Present: Normal Range of Motion Respiratory/Chest: Present: Clear to Auscultation, Good Air Exchange. No: Respiratory Distress, Accessory Muscle Use Cardiovascular: Present: Regular Rate and Rhythm, Normal S1, S2. No: Murmurs Abdomen: Present: Normal Bowel Sounds. No: Tenderness, Distention, Peritoneal Signs Back: Present: Normal Inspection, Other (LS spine: +ttp on the lt. paraspinal region, no rash, no midline tenderness, FROM without limitation, sensation intact, motor 5/5). No: CVA Tenderness, Midline Tenderness, Pain with Leg Raise , Decubitus Ulcer Upper Extremity: Present: Normal Inspection. No: Cyanosis, Edema Lower Extremity: Present: Normal Inspection, Other (LLE: +ttp on the lateral hip region, no deformity, FROM without limitation, sensation intact, motor 5/5, no saddling gait, no rash or discoloration. ). No: Edema Neurological: Present: GCS=15, Speech Normal, Motor Func Grossly Intact, Gait Normal, Memory Normal Skin: Present: Warm, Dry, Normal Color. No: Rashes Psychiatric: Present: Alert, Oriented x 3, Normal Insight, Normal Concentration Medical Decision Making ED Course and Treatment: 10/26/16 10:27 -ua -xrays -morphine/zofran/lidoderm 10/26/16 12:11 -LS spine: no fracture or subluxation. -Lt. hip/pelvis: no fracture or dislocation -UA show no UTI -Pt. feels better, no focal neurological deficits. -Discharge home with lidoderm patch, flexeril, heat compression, follow up with you own pmd and pain management within 2 days, return to [facility] ER for any new or worsening signs or symptoms. - Lab Interpretations Lab Results: Lab Results 10/26/16 12:04: Urine Color Yellow, Urine Appearance Clear, Urine pH 6.5, Ur Specific [place] <= 1.005, Urine Protein Negative, Urine Glucose (UA) Negative, Urine Ketones Negative, Urine Blood Negative, Urine Nitrate Negative, Urine Bilirubin Negative, Urine Urobilinogen 0.2, Ur Leukocyte Esterase Negative - RAD Interpretation Radiology Orders: 10/26/16 10:21 HIP MIN 2V W/ PELVIS LT [RAD] Stat LS SPINE WITH OBL > 18 YRS OLD [RAD] Stat LS spine: unremarkable Lt. 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 Disposition/Present on Arrival - Present on Arrival Any Indicators Present on Arrival: No History of DVT/PE: No History of Uncontrolled Diabetes: Yes Urinary Catheter: No History of Decub. Ulcer: No History Surgical Site Infection Following: None - Disposition Have Diagnosis and Disposition been Completed?: Yes Diagnosis: Chronic back pain, Hip pain Disposition: HOME/ ROUTINE Disposition Time: 12:12 Patient Plan: Discharge Condition: IMPROVED Additional Instructions: -Discharge home with lidoderm patch, flexeril, heat compression, follow up with you own pmd and pain management within 2 days, return to [facility] ER for any new or worsening signs or symptoms. Prescriptions: Cyclobenzaprine [Cyclobenzaprine HCl] 10 mg PO TID #21 tab Lidocaine 5% [Lidoderm] 1 patch TOP DAILY PRN #14 patch PRN Reason: Other Referrals: Tamia Tan MD [Primary Care Provider] - Follow up with primary Slade Dahl MD [Staff Provider] - Follow up with primary Forms: [employer] (Bulgarian), WORK NOTE
[2016-10-26] MEDS ORDERED: Lidocaine 5% Patch TD SCH (10:30)
[2016-10-26 11:23] VITALS: O2SAT 97
[2016-10-26 12:08] LABS: PH,URINE 6.5 (4.7-8.0); URINE BILIRUBIN NEGATIVE (NEGATIVE); URINE BLOOD NEGATIVE (NEGATIVE); URINE GLUCOSE (UA) NEGATIVE (NEGATIVE); URINE LEUKOCYTE ESTERASE NEGATIVE Leu/uL (NEGATIVE); URINE NITRATE NEGATIVE (NEGATIVE); URINE PROTEIN NEGATIVE mg/dL (<30 mg/dL); URINE UROBILINOGEN 0.2 E.U./dL (<1 E.U./dL)
[2016-10-26 12:09] LABS: URINE APPEARANCE CLEAR (CLEAR); URINE COLOR YELLOW (YELLOW)
[2016-10-26 12:35] VITALS: BP 124/65; PULSE 69
--- NOTE | 2016-10-26 13:19 | RAD ---
PROCEDURE: Radiographs of the Lumbar Spine. HISTORY: lower back pain for months COMPARISON: No prior. FINDINGS: BONES: Normal alignment. No listhesis. No fracture. DISC SPACES: Unremarkable. OTHER FINDINGS: None. IMPRESSION: Unremarkable radiographs of the lumbar spine.
--- NOTE | 2016-10-26 13:19 | RAD ---
PROCEDURE: Left Hip and pelvis X-ray Radiographs. HISTORY: lt. hip pain x 3 weeks COMPARISON: None. FINDINGS: BONES: Normal. No fracture. JOINTS: Normal. SOFT TISSUES: Normal. OTHER FINDINGS: None. IMPRESSION: Negative study
== END 2016-10-26 13:12 | disposition home or self-care (01) ==
LOC: ED 09:47
DX: M54.5 Low back pain (principal); G89.29 Other chronic pain; M25.552 Pain in left hip
CPT/HCPCS: 72110; 73502; 81003; 96372; 99283; J2270

== ENCOUNTER 2017-05-04 13:07 | Emergency (ER) | payer MEDICAID ==
[2017-05-04 13:20] VITALS: BP 123/78; RESP 19; TEMP 98.5
[2017-05-04 13:24] VITALS: PULSE 73; O2SAT 97
[2017-05-04] MEDS ORDERED: Oxycodone/Acetaminophen 5/325 mg Tab PO STA (14:13)
--- NOTE | 2017-05-04 14:17 | ED PDOC ---
Arrival/HPI - General Chief Complaint: Dental Pain Time Seen by Provider: 05/04/17 14:12 Historian: Patient - History of Present Illness Narrative History of Present Illness (Text): 05/04/17 14:26 51-year-old female presents today with 1 day history of worsening left lower dental pain. Patient states she was seen by her dentist on Saturday and he pulled her left upper tooth. Patient states she wanted him to pull the left lower tooth because it's been bothering her for a few days but he told her that they could only pulled one at a time. Patient states over the past day or so the pain has drastically increased. Patient states her dentist gave her a prescription for Motrin but she states that she is allergic. Patient denies headache or dizziness. Denies trismus or drooling. No other complaints. Past Medical History - Provider Review Nursing Documentation Reviewed: Yes - Travel History Have you recently traveled outside [place] w/in the past 3 mons?: No - Infectious Disease Hx of Infectious Diseases: None - Tetanus Immunization Tetanus Immunization: Unknown - Past Medical History Past Medical History: Non-Contributing - Cardiac Hx Cardiac Disorders: Yes - Pulmonary Hx Respiratory Disorders: Yes Hx Asthma: Yes Hx Bronchitis: Yes - Neurological Hx Neurological Disorder: No - HEENT Hx HEENT Disorder: No - Renal Hx Renal Disorder: No - Endocrine/Metabolic Hx Endocrine Disorders: Yes Hx Diabetes Mellitus Type 2: Yes - Hematological/Oncological Hx Blood Disorders: Yes Hx Anemia: Yes - Integumentary Hx Dermatological Disorder: No - Musculoskeletal/Rheumatological Hx Musculoskeletal Disorders: Yes Hx Arthritis: Yes Hx Back Pain: Yes (chronic) Hx Osteoarthritis: Yes - Gastrointestinal Hx Gastrointestinal Disorders: Yes Hx Gastroesophageal Reflux: Yes - Genitourinary/Gynecological Hx Genitourinary Disorders: Yes Other/Comment: kidney stones - Psychiatric Hx Psychophysiologic Disorder: Yes Hx Depression: Yes Hx Substance Use: No - Surgical History Hx Hysterectomy: Yes (2011) Hx Orthopedic Surgery: Yes (foot left) Other/Comment: kidney stones removed, cyst removal - Anesthesia Hx Anesthesia: No - Suicidal Assessment Feels Threatened In Home Enviroment: No Family/Social History - Physician Review Nursing Documentation Reviewed: Yes Family/Social History: Unknown Family HX Smoking Status: Former Smoker Hx Alcohol Use: No Hx Substance Use: No Hx Substance Use Treatment: No Allergies/Home Meds Allergies/Adverse Reactions: Allergies ibuprofen Allergy (Verified 05/04/17 13:20) RASH naproxen Allergy (Verified 05/04/17 13:20) RASH Home Medications: Home Meds Medication Instructions Recorded Confirmed Albuterol 0.083% [Albuterol 3 ml IH BID 10/26/16 05/04/17 Sulfate 3 Ml] Albuterol HFA [Ventolin HFA 90 2 puff IH [id number] 10/26/16 05/04/17 mcg/actuation (8 g)] Atorvastatin [Lipitor] 40 mg PO DAILY 10/26/16 05/04/17 Cholecalciferol [Vitamin D] 1,000 unit PO DAILY 10/26/16 05/04/17 Hydrocodone/Acetaminophen 1 each PO Q4 PRN 10/26/16 05/04/17 [Hydrocodon-Acetaminophn 10-325] Omeprazole 20 mg PO DAILY 10/26/16 05/04/17 Zolpidem [Ambien] 10 mg PO BID 10/26/16 05/04/17 buPROPion [Bupropion HCl] 75 mg PO BID 10/26/16 05/04/17 hydrOXYzine HCl [Atarax] 50 mg PO DAILY 10/26/16 05/04/17 metFORMIN [glucOPHAGE] 500 mg PO BID 10/26/16 05/04/17 Review of Systems - Review of Systems Constitutional: absent: Fatigue, Fevers ENT: Other (dental pain). absent: Sore Throat, Sinus Congestion Respiratory: absent: SOB, Cough Cardiovascular: absent: Chest Pain, Palpitations Gastrointestinal: absent: Abdominal Pain, Constipation, Diarrhea, Nausea, Vomiting Skin: absent: Rash, Pruritis Neurological: absent: Headache, Dizziness Psychiatric: absent: Anxiety, Depression Physical Exam Vital Signs Temp Pulse Resp BP Pulse Ox 05/04/17 13:22 98.5 F 73 19 123/78 97 05/04/17 13:20 98.5 F 72 19 123/78 98 Temperature: Afebrile Blood Pressure: Normal Pulse: Regular Respiratory Rate: Normal Appearance: Positive for: Well-Appearing, Non-Toxic, Comfortable Pain Distress: None Mental Status: Positive for: Alert and Oriented X 3 - Systems Exam Head: Present: Atraumatic Conjunctiva: Present: Normal Ears: Present: Normal, NORMAL TM Mouth: Present: Moist Mucous Membranes, Normal Lips, Normal Tounge, Other (no elevation of the floor of the tongue). No: Drooling, Trismus, Normal Teeth (+ left lower molar; + ttp over left lower molar; no surrounding erythema or edema ; ) Pharnyx: Present: Normal. No: ERYTHEMA, EXUDATE, TONSILS ENLARGED Neck: Present: Normal Range of Motion, Trachea Midline. No: Lymphadenopathy Respiratory/Chest: Present: Clear to Auscultation Cardiovascular: Present: Regular Rate and Rhythm Neurological: Present: GCS=15 Skin: Present: Warm, Dry, Normal Color. 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 i advised patient that I can not give rx for narcotics. pt was advised to f/ u with pain management doctor and dentist. I advised follow-up with the dentist within the next 2 days. I advised immediate return is symptoms worsen persist or if new concerning symptoms develop Patient verbalizes understanding of discharge instructions and need for immediate followup. Impression: Toothache Tylenol every 4 hours as needed for pain Amoxicillin 1 tablet 3 times daily x 10 days Follow-up with the dentist within the next 2 days Follow up with the primary care physician within the next 2 days. Return immediately if symptoms worsen persist or if new concerning symptoms develop Disposition/Present on Arrival - Present on Arrival Any Indicators Present on Arrival: Yes History of DVT/PE: No History of Uncontrolled Diabetes: Yes Urinary Catheter: No History of Decub. Ulcer: No History Surgical Site Infection Following: None - Disposition Have Diagnosis and Disposition been Completed?: Yes Diagnosis: Pain, dental Disposition: HOME/ ROUTINE Disposition Time: 14:15 Patient Plan: Discharge Condition: GOOD Discharge Instructions (ExitCare): Dental Pain (DC) Additional Instructions: Tylenol every 4 hours as needed for pain Amoxicillin 1 tablet 3 times daily x 10 days Follow-up with the dentist within the next 2 days Follow up with the primary care physician within the next 2 days. Return immediately if symptoms worsen persist or if new concerning symptoms develop Prescriptions: Amoxicillin 500 mg PO TID #30 tab Referrals: Tamia Tan MD [Primary Care Provider] - Follow up with primary Gabriel Johnson DMD [Non-Staff] - Follow up with primary Juanito Neri DMD [Staff Provider] - Follow up with primary Forms: [employer] (Icelandic), WORK NOTE
== END 2017-05-04 14:25 | disposition home or self-care (01) ==
LOC: ED 13:07
DX: K08.89 Other specified disorders of teeth and supporting structures (principal); Z87.891 Personal history of nicotine dependence